=== PATIENT | female | born 1990 | race Caucasian/White ===

== ENCOUNTER 2017-09-25 09:53 | Emergency (ER) | payer BC ==
[2017-09-25 10:14] VITALS: BMI 33.6
--- NOTE | 2017-09-25 10:32 | PDOC ---
History of Present Illness - General Chief Complaint: Nausea/Vomiting Stated Complaint: NAUSEA/VOMITING Time Seen by Provider: 09/25/17 10:17 - History of Present Illness Initial Comments: 09/25/17 11:16 The patient is a 27 year old female with a history of an 7cm ovarian cyst who presents for evaluation of nausea, vomiting and abdominal pain. The patient reports sudden onset sharp lower abdominal pain worse in the RLQ beginning earlier this morning with associated nausea and 5 episodes of non-bloody, non- bilious vomiting prompting her presentation to the ED for evaluation. The patient states that she has a 7cm ovarian cyst on the right that she has been following with her OB for. She denies any vaginal bleeding, vaginal discharge, fevers, chills, chest pain, SOB, or changes with urination or bowel movements. Past History - Past Medical History Allergies/Adverse Reactions: Allergies Allergy/AdvReac Type Severity Reaction Status Date / Time No Known Allergies Allergy Verified 09/25/17 10:14 Home Medications: Ambulatory Orders Oxycodone HCl/Acetaminophen [Percocet 5-325 mg Tablet] 1 - 2 tab PO Q6H PRN #20 tab MDD 8 tabs 09/25/17 COPD: No - Suicide/Smoking/Psychosocial Hx Smoking History: Never smoked Review of Systems - Review of Systems Comments:: 09/25/17 11:19 Constitutional: No fevers, chills, fatigue, malaise HEENT: No Rhinorrhea, nasal congestion, visual changes Cardiovascular: No chest pain, syncope, palpitations, lightheadedness Respiratory: No Cough, SOB, Hemoptysis, Gastrointestinal: Abdominal pain, nausea, vomiting. No Constipation, Diarrhea, Melena Genitourinary: No Dysuria, Frequency, Urgency, Hesitancy, Hematuria, Flank pain Musculoskeletal: No Myalgia, arthralgia Skin: No rashes, bruising, pallor Neurologic: No Headache, Dizziness, Numbness, Weakness, or Tingling Psychiatric: No Hallucinations. No SI or HI *Physical Exam - Vital Signs Last Vital Signs Temp Pulse Resp BP Pulse Ox 98.3 F 69 18 113/79 99 09/25/17 10:11 09/25/17 10:11 09/25/17 10:11 09/25/17 10:11 09/25/17 10:11 - Physical Exam Comments: 09/25/17 11:20 General Appearance: Nourished In Moderate Apparent Distress HEENT: EOMI, JAGRUTI. No Pharyngeal Erythema, Tonsillar Exudate, Tonsillar Erythema Neck: No Cervical Lymphadenopathy Respiratory/Chest: Lungs Clear, Normal Breath Sounds. No Crackles, Rales, Rhonchi, Wheezing Cardiovascular: Regular Rhythm, Regular Rate. No Murmur, Gallops, Rubs Gastrointestinal/Abdominal: Normal Bowel Sounds, Soft. Lower abdominal tenderness to palpation worse in the right lower quadrant. No Guarding, Rebound , Musculoskeletal: No CVA Tenderness Extremity: Normal Capillary Refill Integumentary: Normal Color, Dry, Warm Neurologic: Fully Oriented, Alert, Normal Mood/Affect, Normal Response, ED Treatment Course - LABORATORY CBC & Chemistry Diagram: 09/25/17 10:38 09/25/17 10:38 Medical Decision Making - Critical Care Time Total Critical Care Time (minutes): 30 Critical Care Statement: The care of this patient involved high complexity decision making to prevent further life threatening deterioration of the patient 's condition and/or to evaluate & treat vital organ system(s) failure or risk of failure. - Medical Decision Making 09/25/17 11:21 The patient is a 27 year old female with a history of an 7cm ovarian cyst who presents for evaluation of nausea, vomiting and abdominal pain. Differential includes but is not limited to: Ovarian torsion, Ruptured cyst, infectious, metabolic derangement. Given the patient's history of a large cyst on the side of her pain, we are concerned for ovarian torsion. We will obtain a cbc, cmp, serum preg, coags, lipase, and trans vaginal US to evaluate further. In the meantime, we will treat the patient with iv fluids, zofran, and morphine for pain control. We will continue to monitor and reassess. 09/25/17 17:55 cbc, cmp, lipase, serum preg, ua are unremarkable. Trans vaginal US demonstrates 5cm right complex ovarian cyst as read by our radiologist. We obtained a ct abdomen to evaluate further which did not show any signs of acute appendicits as read by our radiologist. The patient's symptoms are likely due to her ovarian cyst. She reports significant improvement in her pain and is comfortable with discharge. We are comfortable with discharging the patient home with close ob follow up. We discussed and stressed the importance of following up with her ob and the patient voiced understanding. We discussed the results and the rest of the plan with the patient who voiced understanding and is agreeable with the plan. *DC/Admit/Observation/Transfer Diagnosis at time of Disposition: Ovarian cyst Qualifiers: Laterality: right Qualified Code(s): N83.201 - Unspecified ovarian cyst, right side - Discharge Dispostion Disposition: HOME Condition at time of disposition: Improved Admit: No - Prescriptions Prescriptions: Oxycodone HCl/Acetaminophen [Percocet 5-325 mg Tablet] 1 - 2 tab PO Q6H PRN #20 tab MDD 8 tabs PRN Reason: Pain - Referrals Referrals: Karin Hines [Primary Care Provider] - - Patient Instructions Printed Discharge Instructions: DI for Ovarian Cyst Additional Instructions: Please return to the ER if you experience concerning or worsening symptoms including fevers, severe pain, difficulty breathing, chest pain. Your symptoms are likely due to your ovarian cyst. We have sent some pain medication to your pharmacy to help manage your pain at home. It is extremely important that you call to schedule a follow up appointment with your hunter within 2-3 days to discuss further management of your symptoms - Post Discharge Activity
[2017-09-25] MEDS ORDERED: SODIUM CHLORIDE 1,000 ML IV STA (10:43)
[2017-09-25] MEDS ORDERED: ONDANSETRON 4 MG/2 ML VIAL IVPUSH ONE (10:43)
[2017-09-25] MEDS ORDERED: morphine CARPU-JECT 4 MG/1 ML DISP.SYRIN IVPUSH ONE ×2 (10:43→11:47)
[2017-09-25] MEDS ORDERED: morphine CARPU-JECT 10 MG/1 ML DISP.SYRIN ONE ×2 (10:48→11:48)
[2017-09-25] MEDS ORDERED: ONDANSETRON 4 MG/2 ML VIAL ONE (10:49)
[2017-09-25 11:11] LABS: URINE APPEARANCE SLCLOUDY; URINE BILIRUBIN NEGATIVE (NEGATIVE); URINE BLOOD NEGATIVE (NEGATIVE); URINE COLOR YELLOW; URINE GLUCOSE (UA) NEGATIVE (NEGATIVE); URINE KETONE NEGATIVE (NEGATIVE); URINE NITRITE NEGATIVE (NEGATIVE); URINE PROTEIN NEGATIVE (NEGATIVE); URINE UROBILINOGEN NEGATIVE mg/dL (0.2-1.0)
[2017-09-25 11:12] LABS: BASO % 0.7 % (0-2.0); EOS % 2.5 % (0-4.5); HEMATOCRIT 42.2 % (32.4-45.2); HEMOGLOBIN 14.1 GM/dL (10.7-15.3); LYMPH % 27.1 % (8-40); MCH 30.2 pg (25.7-33.7); MCHC 33.3 g/dl (32.0-36.0); MEAN CELL VOLUME 90.6 fl (80-96); MEAN PLT VOLUME 9.3 fl (7.5-11.1); MONO % 6.2 % (3.8-10.2); NEUT % 63.5 % (42.8-82.8); PLATELET COUNT 256 K/MM3 (134-434); RBC 4.66 M/mm3 (3.60-5.2); RDW 13.1 % (11.6-15.6); WHITE BLOOD COUNT 6.1 K/mm3 (4.0-10.0)
[2017-09-25 11:14] LABS: URINE LEUK ESTERASE 2+ (NEGATIVE)
--- NOTE | 2017-09-25 11:15 | PDOC ---
Attending Attestation - Resident Resident Name: Martin Faith - ED Attending Attestation I have performed the following: I have examined & evaluated the patient, The case was reviewed & discussed with the resident, I agree w/resident's findings & plan, Exceptions are as noted - HPI HPI: 09/25/17 11:13 27 yo F w hx of known 7cm R ovarian cyst, presenting to ED with N/V and RLQ pain since this morning. Pt reports NBNB vom x 5. Pain is sharp, constant, worse with positional changes. She states that she has had similar pain in the past, but it is more severe today. Denies F/C. No vag discharge or bleeding. No bladder or bowel changes. Pt states that she was recently diagnosed with a 7 cm R ovarian cyst and is discussing potential surgical removal with her tankman in the [place]. Denies any prior surgical history. - Physicial Exam PE: 09/25/17 11:15 "GENERAL: Awake, alert, and fully oriented, in no acute distress HEAD: No signs of trauma EYES: PERRLA, EOMI, sclera anicteric, conjunctiva clear ENT: Auricles normal inspection, hearing grossly normal, nares patent, oropharynx clear without exudates. Moist mucosa NECK: Nontender, no stepoffs, Normal ROM, supple, no lymphadenopathy, JVD, or masses LUNGS: Breath sounds equal, clear to auscultation bilaterally. No wheezes, and no crackles HEART: Regular rate and rhythm, normal S1 and S2, no murmurs, rubs or gallops ABDOMEN: +RLQ tenderness, no rebound/guarding EXTREMITIES: Normal range of motion, no edema. No clubbing or cyanosis. No cords, erythema, or tenderness NEUROLOGICAL: Cranial nerves II through XII intact. 5/5 strength and sensation in all extremities, Normal speech, normal gait SKIN: Warm, Dry, normal turgor, no rashes or lesions noted. " - Medical Decision Making 09/25/17 11:16 27 F with RLQ pain. Pt has known 7cm ovarian cyst on R side so is at increased risk of ovarian torsion. However, pain is constant rather than intermittent and has been present for several weeks, making torsion less likely. Pt also still has her appendix, though is afebrile. Consider appendicitis if w/u for ovarian torsion is normal. - Labs, UA, UPT - TVUS - Consider CT to r/o appy - tankman consult 09/25/17 17:[address] both show bilateral ovarian cysts. R sided cyst measuring 5cm, not 7cm reported by pt. Pt reassessed - now with well controlled pain. Able to tolerate PO. Pt well appearing. Vitals wnl. Clinically stable for DC. Pt to f/u with her own OB on Wednesday.
[2017-09-25 11:18] LABS: ALBUMIN 3.7 g/dl (3.4-5.0); ALK PHOS 92 U/L (45-117); ANION GAP 8 (8-16); BILIRUBIN,TOTAL 0.4 mg/dL (0.2-1.0); BLOOD UREA NITROGEN 10 mg/dL (7-18); CALCIUM 8.9 mg/dL (8.5-10.1); CHLORIDE 106 mmol/L (98-107); CO2 28 mmol/L (21-32); CREATININE 0.7 mg/dL (0.55-1.02); GLUCOSE,RANDOM 108 mg/dL (74-106); LIPASE 117 U/L (73-393); SGOT/AST 9 U/L (15-37); SGPT/ALT 20 U/L (12-78); SODIUM 142 mmol/L (136-145); TOT PROT 7.1 g/dl (6.4-8.2)
[2017-09-25 11:19] LABS: INR 1.17 (0.82-1.09); PROTHROMBIN TIME (PATIENT) 13.2 SEC (9.98-11.88)
[2017-09-25 11:22] LABS: ACTIVATED PTT 31.6 SECONDS (26.9-34.4)
[2017-09-25 11:47] LABS: EPI CELLS FEW /HPF (FEW); URINE HYALINE CAST 1 /lpf; URINE MUCUS MANY
[2017-09-25 18:20] VITALS: BP 108/65; PULSE 77; TEMP 97.9
== END 2017-09-25 18:47 | disposition home or self-care (01) ==
LOC: JER 09:53
PROC: 3E033NZ Introduction of Analgesics, Hypnotics, Sedatives into Peripheral Vein, Percutaneous Approach (ICD-10-PCS; principal; 2017-09-25)
PROC: 3E033GC Introduction of Other Therapeutic Substance into Peripheral Vein, Percutaneous Approach (ICD-10-PCS; 2017-09-25)
PROC: 3E033NZ Introduction of Analgesics, Hypnotics, Sedatives into Peripheral Vein, Percutaneous Approach (ICD-10-PCS; 2017-09-25)
DX: N83.201 Unspecified ovarian cyst, right side (principal)
CPT/HCPCS: 36415; 74177-TC; 76830-TC; 80053; 81003; 81015; 83690; 84703; 85025; 85610; 85730; 86850; 86900; 86901; 87086; 99284-25